=== PATIENT | female | born 1985 | race Two or more races ===

== ENCOUNTER 2017-03-23 08:02 | Emergency (ER) | payer SELFPAY ==
[~2017-03-23] VITALS: Ht 160 cm; Wt 61.2 kg
[2017-03-23 08:02] VITALS: BP 117/67
[2017-03-23] MEDS ORDERED: IBUPROFEN 600 MG TABLET PO ONE ×2 (08:14→08:30)
== END 2017-03-23 08:52 | disposition left against medical advice (07) ==
LOC: ER 08:05
DX: S93.401A Sprain of unspecified ligament of right ankle, initial encounter (principal); W10.9XXA Fall (on) (from) unspecified stairs and steps, initial encounter; Y93.89 Activity, other specified; Y92.89 Other specified places as the place of occurrence of the external cause; Y99.8 Other external cause status
CPT/HCPCS: 73564; 73610; 73630; 99284; A4606; Z7610